=== PATIENT | female | born 1960 | race African-American/Black ===

== ENCOUNTER 2016-11-22 12:11 | Emergency (ER) | payer OTHER ==
--- NOTE | 2016-11-22 13:35 | ED Physician Documentation ---
Chest Pain - HPI Stated Complaint: funny feeling circling area near left breast Chief Complaint: Chest Pain Onset: days ago (3 days) Last known Well Date: 11/19/16 Last Known Well Time: 08:00 Last known Well Code/Unknown Code: Known Context: onset during: Severity: mild Quality: aching Chest Pain Radiation: no radiation Chest Pain Signs/Symptoms: denies: nausea, vomiting, diaphoresis Worsened By: nothing Relieved By: other (deep breathing) Further Comments: yes (Patient states that she has devleoped some midsternal chest pain/ epigastric pain. No precipitating factor. Has been under more stress recently. Usually if she takes her "anxiety" medication it seems to help but not this time. (Patient states that the Buspar she tookk prior to arrival may have helped some) Has had a mild cough felt to be related to sinus drainage. No pedal edema noted. Not taking BCP. Is not having any discomfort at this time.) - ROS CONST: no problems. denies: fever, chills LNMP: 05/18/11 EYES/ENT: none SKIN/ENDO: none NEURO/PSYCH: none - PAST HX CA risk factors: hypertension DVT/PE Risk Factors: other (hypothyroidism, has been told baorderline diabetes) GI disease: denies: peptic ulcer Lung disease: denies: asthma, COPD Surgeries/Procedures: none Allergies/Adverse Reactions: Allergies Allergy/AdvReac Type Severity Reaction Status Date / Time No Known Allergies Allergy Verified 11/22/16 13:03 Home Medications: Ambulatory Orders Medication Instructions Recorded Lisinopril 20 mg PO DAILY 11/22/16 - SOCIAL HX Smoking History: less than 1 pack/day (2-3 day) Alcohol Use: none Drug Use: none - FAMILY HX Family HX: other (DM). denies: CAD under 55, CAD over 55 - VITAL SIGNS Vital Signs: Vital Signs Temp Pulse Resp BP Pulse Ox 98.4 F 64 16 140/60 99 11/22/16 12:12 11/22/16 12:12 11/22/16 12:12 11/22/16 12:12 11/22/16 12:12 Chest Pain Physical Exam - EXAM General Appearance: no acute distress, alert EENT: ENT inspection normal, pharynx normal Neck: nml inspection Respiratory: no resp. distress, chest non-tender, nml breath sounds CVS: reg. rate & rhythm, no murmur, no gallop, no friction rub, pulses full, pulses equal Abdomen: soft, no organomegaly, normal bowel sounds, no abdominal bruit, no distension, tenderness (epigastric area) Skin: warm/dry, normal color Extremities: non-tender, normal range of motion, no edema Neuro: oriented X3, mood/affect nml, cognition normal Discharge Clincal Impression: Atypical chest pain, Anxiety Referrals: Ivan Banegas MD [Primary Care Provider] - 2 Days Additional Instructions: I would advise you to start taking the buspirone 10mg twice a day. If that dose seems to be to much for you and you are having some side effects then try to decrease to 1/2 tablet twice a day. Follow-up with your primary care provider. Home Medications: Ambulatory Orders Lisinopril 20 mg PO DAILY 11/22/16 Condition: Stable Disposition: 01 HOME, SELF-CARE Decision to Admit: NO Date of Decison to Admit: 11/22/16 Decision Time: 14:50
[2016-11-22 13:55] LABS: BASOPHILS % 1.3 (0.0-1.5); EOSINOPHILS % 5.1 % (0.0-6.8); MEAN CORPUSCULAR HEMOGLOBIN 27.9 pg (28.0-34.0); MEAN CORPUSCULAR VOLUME 85.8 fl (80.0-100.0); MONOCYTES % 4.7 % (0.0-11.0); NEUTROPHILS # 4.4 # k/uL (1.4-7.7)
[2016-11-22 14:27] LABS: eGFR (African) > 60; eGFR (Non-African) > 60
[2016-11-22 15:03] VITALS: BP 120/68
--- NOTE | 2016-11-22 17:39 | Diagnostic Imaging Report ---
ANYA GASTON~ [facility] [address] [facility].[address] [address] ~ ~ ~ ~ Report Submission Date: Nov 22, 2016 1:39:34 PM CDT Patient ~ Study Name: MARBELLA GARCIA ~ Date: Nov 22, 2016 1:20:03 PM CDT ~ Modality Type: CR Gender: F ~ Description: CHEST : 58 ~ Institution: [facility] Physician: ANYA GASTON ~ ~ ~ ~ HISTORY: ~56-year-old female with chest pain for 2 days. COMPARISON: None available. TECHNIQUE: 2 views of the chest were performed. FINDINGS: No pneumothorax, consolidative infiltrates, pleural effusions, or pulmonary edema. ~There are calcified granulomas likely within the superior segment of the left lower lobe. ~The heart is not enlarged. IMPRESSION: Old granulomatous disease of the chest without evidence of acute intrathoracic process. ~ Electronically signed on Nov 22, 2016 1:39:34 PM CDT by: Brandon CHILDRESS
== END 2016-11-22 15:02 | disposition home or self-care (01) ==
LOC: ED 12:11
DX: R07.89 Other chest pain (principal); F41.9 Anxiety disorder, unspecified
CPT/HCPCS: 71020; 80053; 84484; 85025; 85379; 99283; S1016

== ENCOUNTER 2017-07-22 09:57 | Outpatient (CLI) | payer MEDICARE, OTHER ==
[2017-07-22 10:30] LABS: BASOPHILS % 0.4 (0.0-1.5); EOSINOPHILS % 5.8 % (0.0-6.8); MEAN CORPUSCULAR HEMOGLOBIN 27.1 pg (28.0-34.0); MEAN CORPUSCULAR VOLUME 86.1 fl (80.0-100.0); MONOCYTES % 4.6 % (0.0-11.0); NEUTROPHILS # 3.8 # k/uL (1.4-7.7)
[2017-07-22 11:04] LABS: eGFR (African) > 60; eGFR (Non-African) > 60
== END 2017-07-22 10:30 ==
LOC: LAB 09:57
PROVIDERS: ATTEND Family Medicine
DX: E78.00 Pure hypercholesterolemia, unspecified (principal); I10 Essential (primary) hypertension
CPT/HCPCS: 36415; 80053; 80061; 85025

== ENCOUNTER 2018-08-31 12:31 | Observation (INO) | payer MEDICARE, OTHER ==
[2018-08-31 13:07] LABS: MEAN CORPUSCULAR HEMOGLOBIN 26.9 pg (28.0-34.0)
[2018-08-31 13:08] LABS: BASOPHILS % 0.9 % (0.0-1.5); EOSINOPHILS % 3.1 % (0.0-6.8); MONOCYTES % 7.7 % (0.0-11.0); NEUTROPHILS # 7.6 # k/uL (1.4-7.7)
--- NOTE | 2018-08-31 13:10 | ED Physician Documentation ---
General Adult - HISTORIAN Historian: patient - HPI Chief Complaint: General Adult Additional Information: Patient is a 58-year-old female that presents to the ER with c/o weakness and fatigue. She states that symptoms started 4 days ago however, she thought she was getting better yesterday. This morning she states that she felt like she barely had the energy to get out of bed. She denies f/c/n/v/d. Patient is showing bradycardia and hypotension. Discussed medications and she is currently taking Atenolol 50mg Cardizem 240 mg and Lisinopril. She states that her PCP put her on one of the medications and her thyroid doctor put her on another. Sh e is denying any chest pain or shortness of breath. We will get EKG and labs. Onset: days ago Timing: still present Severity: moderate Modifying Factors: "? medication related" Further Comments: no - ROS CONST: weakness. denies: recent illness EYES/ENT: nasal drainage CVS/RESP: denies: chest pain, shortness of breath GI/: denies: vomiting, nausea, diarrhea MS/SKIN/LYMPH: none NEURO/PSYCH: dizziness (when moving from sitting to standing) - PAST HX Past History: hypertension, other (hypothyroid, arthritis, anxiety) Surgeries/Procedures: BTL Immunizations: UTD. denies: influenza, pneumovax Allergies/Adverse Reactions: Allergies Allergy/AdvReac Type Severity Reaction Status Date / Time No Known Drug Allergies Allergy Unknown Verified 08/31/18 13:02 - SOCIAL HX Smoking History: non-smoker Alcohol Use: rarely Drug Use: none - FAMILY HX Family History: No - VITAL SIGNS Vital Signs: Vital Signs Temp Pulse Resp BP Pulse Ox 120/68 11/22/16 15:02 - REVIEWED ASSESSMENTS Nursing Assessment Reviewed: Yes Vitals Reviewed: Yes ED Results Lab/Radiology - Lab Results Lab Results: EKG shows 70 bpm- patient has been running 39-40s on monitor - Orders Orders: ED Orders Category Date Time Status Continuous EKG monitoring Q30M Care 08/31/18 12:46 Ordered Continuous Pulse Oximetry Q30M Care 08/31/18 12:[address] IV Lock 1T Care 08/31/18 12:46 Ordered CBC/PLATELET/DIFF Routine Lab 08/31/18 12:46 Ordered CMP Routine Lab 08/31/18 12:46 Ordered CREATINE KINASE Routine Lab 08/31/18 12:46 Ordered TROPONIN I Stat Lab 08/31/18 12:46 Ordered Oxygen Daily Oxygen 08/31/18 13:00 Ordered EKG WITH COMPARISON Stat Ther 08/31/18 12:46 Ordered General Adult Physical Exam - PHYSICAL EXAM GENERAL APPEARANCE: no distress EENT: eye inspection normal, pharynx normal, TAMMI, pale conjunctivae, purulent nasal drainage, dry mucous membranes NECK: normal inspection, supple RESPIRATORY: breath sounds normal CVS: heart sounds normal, bradycardia ABDOMEN: soft, normal bowel sounds BACK: normal inspection SKIN: warm/dry, pallor EXTREMITIES: non-tender, normal range of motion NEURO: oriented X3, CN's nml as tested, motor nml, sensation nml, mood/affect nml, cognition normal Discharge Clincal Impression: Bradycardia, Medication monitoring encounter Condition: Stable Decision to Admit: [id number] Decision Time: 13:48 (Spoke with Cecile- ED provider will monitor )
[2018-08-31 13:22] LABS: eGFR (Non-African) > 60
[2018-08-31] MEDS ORDERED: 0.9 % SODIUM CHLORIDE 1,000 ML IV ONE (13:32)
[2018-08-31] MEDS ORDERED: 0.9 % SODIUM CHLORIDE 1,000 ML IV SCH (13:45)
[2018-08-31 14:46] VITALS: BMI 28.1
[2018-08-31] MEDS ORDERED: PANTOPRAZOLE SODIUM INJ. 40 MG VIAL ONE (17:07)
[2018-08-31] MEDS: busPIRone HCL 5 MG TABLET PO SCH (20:16)
[2018-08-31] MEDS: methIMAzole 10 MG TABLET PO SCH (23:20)
[2018-09-01 07:18] LABS: eGFR (Non-African) > 60
[2018-09-01 07:25] LABS: MEAN CORPUSCULAR HEMOGLOBIN 27.2 pg (28.0-34.0)
[2018-09-01 07:26] LABS: BASOPHILS % 0 % (0-2); EOSINOPHILS % 2 % (0-7); MONOCYTES % 4 % (0-11); SEGMENTED NEUTROPHILS % 53 % (39-79)
--- NOTE | 2018-09-01 07:28 | Discharge Summary ---
Discharge Summary - Discharge Sumary Admission Date: 08/31/18 (Observation) Discharge Date: 09/01/18 (Home) History of Present Illness: Patient is a 58-year-old female that presents to the ER with c/o weakness and fatigue. She states that symptoms started 4 days ago however, she thought she was getting better yesterday. This morning she states that she felt like she barely had the energy to get out of bed. She denies f/c/n/v/d. Patient is showing bradycardia and hypotension. Discussed medications and she is currently taking Atenolol 50mg Cardizem 240 mg and Lisinopril. She states that her PCP put her on one of the medications and her thyroid doctor put her on another. She is denying any chest pain or shortness of breath. We will get EKG and labs. Condition at Discharge: Stable Consultations this Visit: None Procedures this Visit: None Allergies/Adverse Reactions: Allergies Allergy/AdvReac Type Severity Reaction Status Date / Time No Known Drug Allergies Allergy Unknown Verified 08/31/18 13:02 Patient Problems: Current Active Problems Problem Status Onset Bradycardia Acute Hypertension Acute Hyperthyroidism Acute Medication monitoring encounter Acute Discharge Summary: Patient was admitted to observation care and placed on telemetry. Patient was discontinued off of her atenolol and Cardizem. During the hospital stay patient pulse rate did increase up into the 70s. By the next morning patient stated that she was feeling much better. Patient denied any chest pain or chest pressure. At the time to discharge was felt that the patient was stable enough that she could be discharged home and followed up on an outpatient basis. Patient will be discontinued off of the atenolol. Patient was instructed on how to check her pulse rate. Patient will return to clinic in one week. She was instructed to return to the clinic or go to the ED is she has any further bradycardia, chest pain, syncopal or near syncopal episodes. - Final Diagnosis (1) Bradycardia Problems: Seems better since holding her medications. Patient states that she is feeling better today. Will keep patient off of the atenolol at this time. I will discuss with Dr olsen about what to do with cardizem. (2) Hypertension Problems: stable (3) Hyperthyroidism Problems: stable, continue with home meds
[2018-09-01 08:27] VITALS: BP 139/71
[2018-09-01] MEDS: busPIRone HCL 5 MG TABLET PO SCH (09:15)
[2018-09-01] MEDS: methIMAzole 10 MG TABLET PO SCH (09:17)
== END 2018-09-01 10:00 | disposition home or self-care (01) ==
LOC: ED 12:31 → INTOOBSV 13:35 → SOUTH 13:35
PROVIDERS: ADMIT Nurse Practitioner Family; ATTEND Family Medicine
DX: R00.1 Bradycardia, unspecified (principal); R53.1 Weakness; R53.83 Other fatigue; I10 Essential (primary) hypertension; E03.9 Hypothyroidism, unspecified; Z51.81 Encounter for therapeutic drug level monitoring
CPT/HCPCS: 80053; 82550; 84484; 85025; 99283; 99284; G0378; J7030; 99217; G0379; S1016

== ENCOUNTER 2018-11-01 09:30 | Day surgery (SDC) | payer MEDICARE, OTHER ==
[2018-09-04 17:27] VITALS: BP 139/71
[~2018-11-01 09:30] MED LIST: LACTATED RINGERS 1,000 ML IV.SOLN IV ONE; LIDOCAINE HCL 2% PF 100MG/5ML VIAL IJ ONE; PROPOFOL 200 MG/20 ML VIAL IV ONE
--- NOTE | 2018-11-11 13:20 | GI Report ---
OPERATIVE/PROCEDURE REPORT PATIENT NAME: MARBELLA GARCIA DATE OF : 1960 CHART#: [id number] DATE OF PROCEDURE: 11/01/2018 REFERRING PHYSICIAN: Dr. Huber. PROCEDURE PERFORMED: Colonoscopy and polypectomy. SURGEON: Julia Aldrich M.D., [place] INDICATION FOR PROCEDURE: The patient is a 58-year-old woman who is referred for screening. This is her first colonoscopy. She denies a family history of colorectal cancer. PROCEDURE MEDICATION: Propofol, as per Anesthesia. DESCRIPTION OF PROCEDURE: An Olympus video colonoscope was advanced through the rectum and slowly advanced to the cecum. The appendiceal orifice was normal. In the cecum the patient had a 2-3 mm flat polyp and with cold biopsy was removed in 2 pieces. On slow withdrawal, the remaining part of the ascending colon, transverse colon: No obvious intraluminal lesions were noted. Descending colon, sigmoid: Some redundancy but no obvious intraluminal lesions were noted. Retroflexion in the rectum was normal. The patient tolerated the procedure well. FINDINGS: Small polyp removed from the cecum. RECOMMENDATIONS: 1. High fiber diet. 2. Consider relook at her colon, 5 years surveillance, pending the pathology of the polyp. JULIA ALDRICH M.D., [place].A.CRachellP. VICKI/leonor Job#: [id number] Cc: Dr. Huber ] MTDD
== END 2018-11-01 11:45 ==
LOC: OPSURG 09:30
PROVIDERS: ATTEND Internal Medicine Gastroenterology
DX: Z12.11 Encounter for screening for malignant neoplasm of colon (principal); K63.5 Polyp of colon
CPT/HCPCS: 45380; 88305; J2001; J2704; J7120